=== PATIENT | male | born 2000 | race African-American/Black ===

== ENCOUNTER 2025-06-20 20:07 | Emergency (ER) | payer MEDICAID, OTHER ==
[~2025-06-20] VITALS: Ht 172.7 cm; Wt 51.8 kg
[2025-06-20 22:24] VITALS: BP 124/61; TEMP 98.7
[2025-06-20 22:51] VITALS: PULSE 71; RESP 16; O2SAT 96
[2025-06-20] MEDS: carBAMazepine 200 MG/10 ML Ud ORAL Susp PO ONE (23:40)
[2025-06-20] MEDS ORDERED: CARB200T PO (23:47)
[2025-06-20] MEDS ORDERED: GABA300T4 PO (23:47)
--- NOTE | 2025-06-20 23:49 | ED.PDOC ---
History of Present Illness HPI Comments 24-year-old male complaining of right temporal and jaw pain. Patient reports a history of trigeminal neuralgia. States he was taking gabapentin but ran out. Has not seen a neurologist yet. States he has been dealing with this she for the last eight years. Nothing makes it better, nothing makes it worse. Chief Complaint: Jaw Pain Time Seen by MD: 22:29 Reviewed Notes: Nurses Notes, Medications, Allergies Allergies: Coded Allergies: NO KNOWN ALLERGIES (Unverified , 06/20/25) Information Source: Patient Mode of Arrival: Ambulatory Constitutional: denies: chills, diaphoresis, fatigue, fever, malaise, sweats, weakness, others EENTM: denies: blurred vision, double vision, ear bleeding, ear discharge, ear drainage, ear pain, ear ringing, eye pain, eye redness, hearing loss, mouth pain, mouth swelling, nasal discharge, nose bleeding, nose congestion, nose pain, photophobia, tearing, throat pain, throat swelling, voice changes, others Respiratory: denies: cough, hemoptysis, orthopnea, SOB at rest, shortness of breath, SOB with excertion, stridor, wheezing, others Cardiovascular: denies: chest pain, dizzy spells, diaphoresis, Dyspnea on exertion, edema, irregular heart beat, left arm pain, lightheadedness, palpitations, PND, syncope, others Gastrointestinal: denies: abdomen distended, abdominal pain, blood streaked bowels, constipated, diarrhea, dysphagia, difficulty swallowing, hematemesis, melena, nausea, poor appetite, poor fluid intake, rectal bleeding, rectal pain, vomiting, others Genitourinary: denies: burning, dysuria, flank pain, frequency, hematuria, incontinence, penile discharge, penile sore, pain, testicle pain, testicle swelling, urgency, others Neurological: denies: dizziness, fainting, headache, left sided numbness, left sided weakness, numbness, paresthesia, pre-existing deficit, right sided numbness, right sided weakness, seizure, speech problems, tingling, tremors, weakness, others Musculoskeletal: denies: back pain, gout, joint pain, joint swelling, muscle pain, muscle stiffness, neck pain, others Integumetry: denies: bruises, change in color, change in hair/nails, dryness, laceration, lesions, lumps, rash, wounds, others Allergic/Immunocompromised: denies: Difficulty Healing, Frequent Infections, Hi ves, Itching, others Hematologic/Lymphatic: denies: anemia, blood clots, easy bleeding, easy bruising, swollen glands, others Endocrine: denies: excessive hunger, excessive sweating, excessive thirst, excessive urination, flushing, intolerance to cold, intolerance to heat, unexplained weight gain, unexplained weight loss, others Psychiatric: denies: anxiety, bipolar disorder, depression, hopeless, panic disorder, schizophrenia, sleepless, suicidal, others All Other Systems: Reviewed and Negative Physical Exam General Appearance: No Apparent Distress, Normal HEENT: Normal ENT Inspection, Pharynx Normal, TMs Normal Neck: Full Range of Motion, Non-Tender, Normal, Normal Inspection Respiratory: Chest Non-Tender, Lungs Clear, No Accessory Muscle Use, No Respiratory Distress, Normal Breath Sounds Cardiovascular: No Edema, No JVD, No Murmur, No Gallop, Normal Peripheral Pulses, Regular Rate/Rhythm Breast Exam: Deferred Gastrointestinal: No Organomegaly, Non Tender, No Pulsatile Mass, Normal Bowel Sounds, Soft Genitalia: Deferred Pelvic: Deferred Rectal: Deferred Extremities: No calf tenderness, Normal capillary refill, Normal inspection, Normal range of motion, Non-tender, No pedal edema Musculoskeletal : Apperance: Normal Neurologic: Alert, retail sales consultant II-XII nml as Tested, No Motor Deficits, Normal Affect, Normal Mood, No Sensory Deficits Cerebellar Function: Normal Reflexes: Normal Skin: Dry, Normal Color, Warm Lymphatic: No Adenopathy Was a procedure done? Was a procedure done?: No Differential Dx Considerations may include: TM today, dental light caries, dental abscess, trying saw arteritis, trigeminal neuralgia X-Ray, Labs, Meds, VS Vital Signs Date Time Temp Pulse Resp B/P (MAP) Pulse Ox O2 Delivery O2 Flow Rate FiO2 06/20/25 22:51 71 16 96 Room Air 06/20/25 22:24 98.7 71 16 124/61 (82) 96 98.7 06/20/25 20:07 98.6 65 20 114/61 97 98.6 Time of 1ST Reevaluation: 23:44 Reevaluation 1ST: Unchanged Patient Education/Counseling: Diagnosis, Treatment, Prognosis Family Education/Counseling: No Family Present SEPSIS Sepsis Screen Date sepsis recognized/suspect: Jun 20, 2025 Time Sepsis recognized/suspect: 2014 Recent Procedure: No On Antibiotic Therapy: No Respiratory Rate >20: No Heart Rate >90: No Temp<36 C (96.8 F) or >38.3 C: No SBP <90 or MAP <65 mmHG: No New Acute Mental Status Change: No Is the patient on CPAP, BIPAP,: No Vital Signs Date Time Temp Pulse Resp B/P (MAP) Pulse Ox O2 Delivery O2 Flow Rate FiO2 06/20/25 22:51 71 16 96 Room Air 06/20/25 22:24 98.7 71 16 124/61 (82) 96 98.7 06/20/25 20:07 98.6 65 20 114/61 97 98.6 Departure 1 Departure Time of Disposition: 23:49 Impression: Primary Impression: Trigeminal neuralgia Disposition: 04 [facility] Condition: Stable Referrals Follow up in the emergency department in the next 24-48 hours if symptoms worsen. It was advised to follow up with your primary care doctor in the next 3-4 days for further evaluation. e-Prescriptions Gabapentin (Once-Daily) (Gabapentin) 300 Mg Tab 300 MG PO TID PRN, #90 TAB Prov: SHARRI ORTA 06/20/25 Carbamazepine (Tegretol) 200 Mg Tab 200 MG PO TID PRN, #60 TAB Prov: SHARRI ORTA 06/20/25 Discharged With: Self Critical Care Note Critical Care Time?: No Stability Stability form required: No Heart Score Heart Score: Heart Score Response (Comments) Value History N/A 0 EKG N/A 0 Age N/A 0 Risk Factors N/A 0 Troponin N/A 0 Total 0 SHARRI ORTA Jun 20, 2025 23:49
[2025-06-21] MEDS ORDERED: KETOROLAC TROMETH 30 MG/ML 1ML VIAL IM ONE
== END 2025-06-20 23:57 | disposition home or self-care (01) ==
LOC: ER 20:07
DX: G50.0 Trigeminal neuralgia (principal)